=== PATIENT | male | born 1970 | race Two or more races ===

== ENCOUNTER 2021-12-22 07:07 | Outpatient (CLI) | payer OTHER | END 2021-12-22 07:17 | disposition home or self-care (01) | LOC: RX STUDY 07:07 | PROVIDERS: ATTEND Neurological Surgery | DX: R10.11 Right upper quadrant pain (principal) ==

== ENCOUNTER 2022-08-10 08:52 | Outpatient (CLI) | payer OTHER | END 2022-08-10 08:54 | disposition home or self-care (01) | LOC: SONOGRAMA 08:52 | PROVIDERS: ATTEND Neurological Surgery | DX: R22.1 Localized swelling, mass and lump, neck (principal) ==

== ENCOUNTER 2024-03-30 09:47 | Outpatient (CLI) | payer OTHER | END 2024-03-30 09:57 | disposition home or self-care (01) | LOC: MRI 09:47 | PROVIDERS: ATTEND Neurological Surgery | DX: R51.9 Headache, unspecified (principal); R42 Dizziness and giddiness; R07.81 Pleurodynia | CPT/HCPCS: 70551 ==

== ENCOUNTER 2024-07-12 07:22 | Outpatient (CLI) | payer OTHER | END 2024-07-12 07:34 | disposition home or self-care (01) | LOC: SONOGRAMA 07:22 | PROVIDERS: ATTEND Neurological Surgery | DX: R10.31 Right lower quadrant pain (principal) ==

== ENCOUNTER 2024-08-07 08:10 | Outpatient (CLI) | payer OTHER | END 2024-08-07 08:14 | disposition home or self-care (01) | LOC: TOM 08:10 | PROVIDERS: ATTEND Neurological Surgery | DX: R10.9 Unspecified abdominal pain (principal) ==

== ENCOUNTER 2025-01-25 10:27 | Outpatient (CLI) | payer OTHER | END 2025-01-25 10:37 | disposition home or self-care (01) | LOC: MRI 10:27 → RAD 10:27 → MRI 10:37 | DX: M25.561 Pain in right knee (principal) ==